=== PATIENT | male | born 1980 | race Asian ===

== ENCOUNTER 2022-03-21 23:58 | Emergency (ER) | payer MEDICAID ==
[~2022-03-21] VITALS: Ht 170.2 cm; Wt 74.0 kg
[2022-03-22 00:01] VITALS: BP 143/94
[2022-03-22 00:34] LABS: COVID AG,FIA SOURCE NASOPHARYNGEAL
[2022-03-22 01:05] LABS: INFLUENZA TYPE A NEGATIVE FOR TYPE A (NEGATIVE); INFLUENZA TYPE B NEGATIVE FOR TYPE B (NEGATIVE)
[2022-03-22] MEDS ORDERED: AZIT-84 PO (01:15)
[2022-03-22] MEDS ORDERED: AZITHROMYCIN 500 MG TABLET PO ONE (01:15)
[2022-03-22] MEDS ORDERED: ACETAMINOPHEN 500 MG TABLET PO ONE (01:15)
== END 2022-03-22 03:08 | disposition home or self-care (01) ==
LOC: EMS 03-22 00:02
DX: J18.9 Pneumonia, unspecified organism (principal); Z20.822 Contact with and (suspected) exposure to COVID-19
CPT/HCPCS: 71046; 87426; 87804; 99284; Q9967